=== PATIENT | female | born 1945 | race Caucasian/White ===

== ENCOUNTER 2021-10-07 02:09 | Emergency (ER) | payer MEDICARE, MEDICAID ==
[~2021-10-07] VITALS: Ht 157.5 cm; Wt 72.7 kg
[~2021-10-07 02:09] MED LIST: ATOR10TA70 PO; DIPH-423 PO; LISI40TA13 PO; METF-900 PO; NAPR-762 PO; PRED50TA PO; RANI-648 PO; SPIIN INH; TRAZ50TA54 PO
[2021-10-07] MEDS ORDERED: dexamethasone sod phosphate 10mg/ml inj IV STA (02:32)
[2021-10-07] MEDS ORDERED: normal saline 1000ML IV soln IVB STA (02:33)
[2021-10-07] MEDS ORDERED: famotidine/PF 10 mg/ml inj IV ONE (02:35)
[2021-10-07 03:04] LABS: BASOPHILS # (AUTO) 0.1 X10'3 (0-0.2); BASOPHILS % (AUTO) 1.3 % (0-1); EOSINOPHILS # (AUTO) 0.5 X10'3 (0-0.9); EOSINOPHILS % (AUTO) 5.9 % (0-6); HEMATOCRIT 34.5 % (35.0-45.0); HEMOGLOBIN 11.8 g/dl (12.0-16.0); LYMPHOCYTES % (AUTO) 22.4 % (21-51); MEAN CORPUSCULAR HEMOGLOBIN 30.6 PG (27.0-31.0); MEAN CORPUSCULAR HGB CONC 34.3 g/dL (33.0-36.5); MEAN CORPUSCULAR VOLUME 89.4 FL (78-98); MEAN PLATELET VOLUME 7.4 FL (7.4-10.4); MONOCYTES # (AUTO) 0.9 X10'3 (0-0.9); NEUTROPHILS # (AUTO) 5.4 X10'3 (1.8-7.7); NEUTROPHILS % (AUTO) 60.4 % (42-75); PLATELET COUNT 279 X10'3 (140-440); RED BLOOD COUNT 3.86 X10'6 (4.20-5.60); RED CELL DISTRIBUTION WIDTH 13.2 % (11.5-14.5); WHITE BLOOD COUNT 8.9 X10'3 (4.5-11.0)
[2021-10-07 03:23] LABS: ALANINE AMINOTRANSFERASE 30 U/L (12-78); ALBUMIN 3.1 G/DL (3.4-5.0); ALBUMIN/GLOBULIN RATIO 0.8 (1.1-1.5); ALKALINE PHOSPHATASE 47 IU/L (46-116); ANION GAP 4 (8-16); ASPARTATE AMINO TRANSFERASE 16 U/L (10-37); BILIRUBIN,TOTAL 0.3 MG/DL (0.1-1.0); BLOOD UREA NITROGEN 18 MG/DL (7-18); BUN/CREATININE RATIO 15.4 (6.6-38.0); C-REACTIVE PROTEIN 0.09 MG/DL (0.0-0.5); CALCIUM 9.3 MG/DL (8.5-10.1); CHLORIDE 104 MMOL/L (99-107); CREATININE 1.17 MG/DL (0.40-0.90); GLUCOSE 98 MG/DL (70-104); POTASSIUM 4.4 MMOL/L (3.5-5.1); SODIUM 137 MMOL/L (135-145); TOTAL CARBON DIOXIDE 28.7 MMOL/L (24-32); TOTAL PROTEIN 6.8 G/DL (6.4-8.2); eGFR 45 ML/MIN
[2021-10-07 05:44] VITALS: BP 127/66
== END 2021-10-07 05:00 | disposition home or self-care (01) ==
LOC: ER 02:10
DX: T78.3XXA Angioneurotic edema, initial encounter (principal); R13.10 Dysphagia, unspecified; R49.0 Dysphonia; I10 Essential (primary) hypertension; J45.909 Unspecified asthma, uncomplicated; K21.9 Gastro-esophageal reflux disease without esophagitis; E11.9 Type 2 diabetes mellitus without complications; F32.A Depression, unspecified; Z90.49 Acquired absence of other specified parts of digestive tract; Z88.6 Allergy status to analgesic agent; Z88.8 Allergy status to other drugs, medicaments and biological substances; Z79.899 Other long term (current) drug therapy; X58.XXXA Exposure to other specified factors, initial encounter; Y93.89 Activity, other specified; Y92.89 Other specified places as the place of occurrence of the external cause; Y99.8 Other external cause status
CPT/HCPCS: 36415; 80053; 84145; 85025; 85651; 86140; 86161; 86885; 86900; 86901; 96374; 96375; 99284; J1100; J3490; J7030

== ENCOUNTER 2023-12-12 14:31 | Emergency (ER) | payer MEDICARE, MEDICAID ==
[~2023-12-12] VITALS: Ht 157.5 cm; Wt 69.5 kg
[2023-12-12 14:46] VITALS: TEMP 98
[2023-12-12 15:22] LABS: BASOPHILS # (AUTO) 0.1 X10'3 (0-0.2); BASOPHILS % (AUTO) 1.3 % (0-1); EOSINOPHILS # (AUTO) 0.5 X10'3 (0-0.9); EOSINOPHILS % (AUTO) 5.3 % (0-6); HEMATOCRIT 28.6 % (35.0-45.0); HEMOGLOBIN 9.6 g/dl (12.0-16.0); LYMPHOCYTES # (AUTO) 1.5 X10'3 (1.1-4.8); LYMPHOCYTES % (AUTO) 17.5 % (21-51); MEAN CORPUSCULAR HEMOGLOBIN 30.1 PG (27.0-31.0); MEAN CORPUSCULAR HGB CONC 33.5 g/dL (33.0-36.5); MEAN CORPUSCULAR VOLUME 89.9 FL (78-98); MEAN PLATELET VOLUME 7.6 FL (7.4-10.4); MONOCYTES # (AUTO) 0.8 X10'3 (0-0.9); MONOCYTES % (AUTO) 9.2 % (2-12); NEUTROPHILS # (AUTO) 5.8 X10'3 (1.8-7.7); NEUTROPHILS % (AUTO) 66.7 % (42-75); PLATELET COUNT 304 X10'3 (140-440); RED BLOOD COUNT 3.18 X10'6 (4.20-5.60); RED CELL DISTRIBUTION WIDTH 13.5 % (11.5-14.5); WHITE BLOOD COUNT 8.7 X10'3 (4.5-11.0)
[2023-12-12 15:46] LABS: ALBUMIN 2.9 G/DL (3.4-5.0); ANION GAP 9 (8-16); BLOOD UREA NITROGEN 21 MG/DL (7-18); CALCIUM 9.5 MG/DL (8.5-10.1); CHLORIDE 104 MMOL/L (99-107); FREE T4 (FREE THYROXINE) 0.92 NG/DL (0.73-1.40); GLUCOSE 125 MG/DL (70-104); MAGNESIUM 1.4 MG/DL (1.5-2.4); POTASSIUM 4.2 MMOL/L (3.5-5.1); PRO BRAIN NATRIURETIC PEPTIDE 589 PG/ML (0-450); SODIUM 138 MMOL/L (135-145); THYROID STIMULATING HORMONE 1.52 ulU/ml (0.34-4.50); TOTAL CARBON DIOXIDE 25.4 MMOL/L (24-32); eCRCL 24 ML/MIN; eGFR 33 ML/MIN
[2023-12-12 16:00] LABS: APTT 26 SECONDS (22-32); PROTHROMBIN TIME 10.7 SECONDS (9.0-12.0)
[2023-12-12 17:26] VITALS: RESP 16
[2023-12-12] MEDS: hyDRALAzine 10mg tablet PO SCH (18:53)
[2023-12-12 19:09] VITALS: BP 151/52; PULSE 58; O2SAT 98
[2023-12-12] MEDS: magnesium oxide 400mg tablet PO ONE (19:10)
== END 2023-12-12 19:13 | disposition home or self-care (01) ==
LOC: ER 14:32
DX: I10 Essential (primary) hypertension (principal); J45.909 Unspecified asthma, uncomplicated; K21.9 Gastro-esophageal reflux disease without esophagitis; E11.9 Type 2 diabetes mellitus without complications; R79.1 Abnormal coagulation profile; Z88.8 Allergy status to other drugs, medicaments and biological substances; Z88.5 Allergy status to narcotic agent; Z79.899 Other long term (current) drug therapy; Z79.84 Long term (current) use of oral hypoglycemic drugs; Z90.49 Acquired absence of other specified parts of digestive tract
CPT/HCPCS: 36415; 80048; 83735; 83880; 84439; 84443; 84484; 85025; 85610; 85730; 93005; 99285

== ENCOUNTER 2024-01-22 14:15 | Day surgery (SDC) | payer MEDICARE, MEDICAID ==
[2024-01-19 13:19] LABS: BASOPHILS # (AUTO) 0.1 X10'3 (0-0.2); BASOPHILS % (AUTO) 1.1 % (0-1); EOSINOPHILS # (AUTO) 0.4 X10'3 (0-0.9); EOSINOPHILS % (AUTO) 6.6 % (0-6); HEMATOCRIT 31.6 % (35.0-45.0); HEMOGLOBIN 10.7 g/dl (12.0-16.0); LYMPHOCYTES # (AUTO) 1.3 X10'3 (1.1-4.8); LYMPHOCYTES % (AUTO) 20.6 % (21-51); MEAN CORPUSCULAR HEMOGLOBIN 30.1 PG (27.0-31.0); MEAN CORPUSCULAR HGB CONC 33.8 g/dL (33.0-36.5); MEAN CORPUSCULAR VOLUME 89.1 FL (78-98); MEAN PLATELET VOLUME 7.3 FL (7.4-10.4); MONOCYTES # (AUTO) 0.6 X10'3 (0-0.9); MONOCYTES % (AUTO) 9.2 % (2-12); NEUTROPHILS # (AUTO) 4.1 X10'3 (1.8-7.7); NEUTROPHILS % (AUTO) 62.5 % (42-75); PLATELET COUNT 310 X10'3 (140-440); RED BLOOD COUNT 3.54 X10'6 (4.20-5.60); RED CELL DISTRIBUTION WIDTH 13.8 % (11.5-14.5); WHITE BLOOD COUNT 6.5 X10'3 (4.5-11.0)
[2024-01-19 13:37] LABS: ANION GAP 9 (8-16); APTT 28 SECONDS (22-32); BLOOD UREA NITROGEN 19 MG/DL (7-18); BUN/CREATININE RATIO 15.8 (10.0-20.0); CHLORIDE 104 MMOL/L (99-107); GLUCOSE 112 MG/DL (70-104); POTASSIUM 4.1 MMOL/L (3.5-5.1); PROTHROMBIN TIME 10.5 SECONDS (9.0-12.0); SODIUM 142 MMOL/L (135-145); TOTAL CARBON DIOXIDE 29.1 MMOL/L (24-32); eGFR 43 ML/MIN
[2024-01-22] VITALS (9 sets, daily range): BP systolic 144–194; BP diastolic 50–74; PULSE 65–98; RESP 10–12; TEMP 98.1; O2SAT 98–100
[~2024-01-22] VITALS: Ht 157.5 cm; Wt 65.5 kg
[2024-01-22] MEDS ORDERED: normal saline 1,000 ML IV SCH (14:30)
[2024-01-22] MEDS ORDERED: diphenhydrAMINE 25mg capsule PO PRN (14:30)
[2024-01-22] MEDS ORDERED: LORazepam 0.5 MG tablet PO PRN (14:30)
[2024-01-22] MEDS ORDERED: FERR325T33 PO (14:47)
[2024-01-22] MEDS ORDERED: ASPI-611 PO (14:47)
[2024-01-22] MEDS ORDERED: ALEN70TA14 PO (14:47)
[2024-01-22] MEDS ORDERED: ATOR-2 PO (14:47)
[2024-01-22] MEDS ORDERED: BUPR-561 PO (14:47)
[2024-01-22] MEDS ORDERED: LOSA50TA64 PO (14:47)
[2024-01-22] MEDS ORDERED: AMLO5TAB PO (14:47)
[2024-01-22] MEDS ORDERED: GABA-530 PO (14:47)
[2024-01-22] MEDS ORDERED: CELE-148 PO (14:47)
[2024-01-22] MEDS ORDERED: CLOP75TA34 PO (14:47)
[2024-01-22] MEDS ORDERED: GARL10002 PO (14:47)
[2024-01-22] MEDS ORDERED: EZET10TA48 PO (14:47)
[2024-01-22] MEDS ORDERED: TIZA4CAP PO (14:47)
[2024-01-22] MEDS ORDERED: heparin 1,000unit/ml 10ml vial 0 ML ONE (14:57)
[2024-01-22] MEDS ORDERED: atropine 0.1mg/ml 10ml syringe ONE (14:57)
[2024-01-22] MEDS ORDERED: phenylephrine 10mg/ml inj. -priapism dosing ONE (14:57)
[2024-01-22] MEDS ORDERED: LIDOcaine 1% 30ml preserv. free vial ONE (14:57)
[2024-01-22] MEDS ORDERED: iohexol 350MG/ML 100ml bottle IV ONE (14:58)
[2024-01-22] MEDS ORDERED: DOPamine 400mg/D5W 250ml 0 ML IV ONE (14:58)
[2024-01-22 15:27] LABS: CHOL/HDL RATIO 1.9 (0.00-4.99); CHOLESTEROL 110 MG/DL (0-200); HDL CHOLESTEROL 57 MG/DL (35-60); LDL CHOLESTEROL 43 MG/DL (50-100); TRIGLYCERIDES 80 MG/DL (20-135)
[2024-01-22] MEDS ORDERED: hydrALAZINE 20mg/ml inj. IV ONE (16:31)
[2024-01-22] MEDS ORDERED: HYDROcodone/acetaminophen 10/325mg tab PO PRN (17:15)
[2024-01-22] MEDS: hydrALAZINE 20mg/ml inj. IV ONE (17:43)
[2024-01-22] MEDS: HYDROcodone/acetaminophen 5mg/325mg tablet PO PRN (17:59)
== END 2024-01-22 19:00 | disposition home or self-care (01) ==
LOC: SSTAY O 14:15
PROVIDERS: ATTEND Student in an Organized Health Care Education/Training Program
DX: I65.21 Occlusion and stenosis of right carotid artery (principal); I70.0 Atherosclerosis of aorta; I10 Essential (primary) hypertension; E11.9 Type 2 diabetes mellitus without complications; E78.00 Pure hypercholesterolemia, unspecified; J44.9 Chronic obstructive pulmonary disease, unspecified; Z79.82 Long term (current) use of aspirin; Z79.84 Long term (current) use of oral hypoglycemic drugs; Z79.891 Long term (current) use of opiate analgesic; Z79.899 Other long term (current) drug therapy; Z88.8 Allergy status to other drugs, medicaments and biological substances
CPT/HCPCS: 36222; 36415; 80048; 80061; 82948; 85025; 85610; 85730; 93005; A6258; C1760; C1894; J0360; J1644; J2001; J2371; J7030; Q9967; Z7610; 36223; J0461; J1265; J2370; J3490

== ENCOUNTER 2024-07-31 10:51 | Inpatient (IN) | payer MEDICARE, MEDICAID ==
[~2024-07-31] VITALS: Ht 157.5 cm; Wt 68.3 kg
[~2024-07-31 10:51] MED LIST changes: +ALEN70TA14 PO; +AMLO5TAB PO; +ASPI-611 PO; +ATOR-2 PO; -ATOR10TA70 PO; +BUPR-561 PO; +CELE-148 PO; +CLOP75TA34 PO; -DIPH-423 PO; +EZET10TA48 PO; +FERR325T33 PO; +GABA-530 PO; +GARL10002 PO; -LISI40TA13 PO; +LOSA50TA64 PO; -NAPR-762 PO; -PRED50TA PO; -RANI-648 PO; -SPIIN INH; +TIZA4CAP PO
[2024-07-31 11:15] LABS: BASOPHILS # (AUTO) 0.1 X10'3 (0-0.2); BASOPHILS % (AUTO) 1.3 % (0-1); EOSINOPHILS # (AUTO) 0.3 X10'3 (0-0.9); EOSINOPHILS % (AUTO) 3.3 % (0-6); HEMATOCRIT 31.3 % (35.0-45.0); HEMOGLOBIN 10.6 g/dl (12.0-16.0); LYMPHOCYTES # (AUTO) 1.2 X10'3 (1.1-4.8); LYMPHOCYTES % (AUTO) 14.4 % (21-51); MEAN CORPUSCULAR HEMOGLOBIN 30.1 PG (27.0-31.0); MEAN CORPUSCULAR HGB CONC 33.7 g/dL (33.0-36.5); MEAN CORPUSCULAR VOLUME 89.4 FL (78-98); MEAN PLATELET VOLUME 7.4 FL (7.4-10.4); MONOCYTES # (AUTO) 0.6 X10'3 (0-0.9); MONOCYTES % (AUTO) 7.3 % (2-12); NEUTROPHILS # (AUTO) 6.1 X10'3 (1.8-7.7); NEUTROPHILS % (AUTO) 73.7 % (42-75); PLATELET COUNT 317 X10'3 (140-440); RED BLOOD COUNT 3.51 X10'6 (4.20-5.60); RED CELL DISTRIBUTION WIDTH 14.1 % (11.5-14.5); WHITE BLOOD COUNT 8.3 X10'3 (4.5-11.0)
[2024-07-31 11:29] LABS: ALANINE AMINOTRANSFERASE 19 U/L (12-78); ALBUMIN 3.1 G/DL (3.4-5.0); ALBUMIN/GLOBULIN RATIO 0.8 (1.1-1.5); ALKALINE PHOSPHATASE 58 IU/L (46-116); ANION GAP 11 (8-16); ASPARTATE AMINO TRANSFERASE 19 U/L (10-37); BILIRUBIN,TOTAL 0.5 MG/DL (0.1-1.0); BLOOD UREA NITROGEN 18 MG/DL (7-18); BUN/CREATININE RATIO 13.7 (10.0-20.0); CALCIUM 9.5 MG/DL (8.5-10.1); CHLORIDE 104 MMOL/L (99-107); CREATININE 1.31 MG/DL (0.40-0.90); GLUCOSE 109 MG/DL (70-104); POTASSIUM 3.7 MMOL/L (3.5-5.1); SODIUM 141 MMOL/L (135-145); TOTAL PROTEIN 7.1 G/DL (6.4-8.2); eCRCL 28 ML/MIN; eGFR 39 ML/MIN
[2024-07-31 11:38] LABS: PRO BRAIN NATRIURETIC PEPTIDE 3355 PG/ML (0-450)
[2024-07-31] MEDS: albuterol 2.5 MG/3 ML nebule NEB ONE (13:06)
[2024-07-31 13:21] VITALS: PULSE 77; PULSE 88; RESP 20; RESP 24; O2SAT 89; O2SAT 98
[2024-07-31] MEDS: methylPREDNISolone sod succ 125mg/2ml vial IV ONE (13:33)
[2024-07-31] MEDS ORDERED: magnesium sulf-water 2g/50mL 50 ML IV PRN (17:00)
[2024-07-31] MEDS ORDERED: albuterol 2.5 MG/3 ML nebule NEB PRN (17:00)
[2024-07-31] MEDS ORDERED: acetaminophen 325mg tablet PO PRN ×2 (17:00)
[2024-07-31] MEDS ORDERED: morphine 2 MG/ML inj. syringe IV PRN (17:00)
[2024-07-31] MEDS ORDERED: ondansetron/PF 4mg/2ml inj IV PRN (17:00)
[2024-07-31] MEDS ORDERED: magnesium Cl slow-release 64mg tablet PO PRN (17:00)
[2024-07-31] MEDS ORDERED: potassium Cl 20 mEq SR tablet PO PRN ×2 (17:00)
[2024-07-31] MEDS ORDERED: mag hydrox/Alum hydrox/simeth 30ml oral suspension PO PRN (17:00)
[2024-07-31] MEDS ORDERED: magnesium sulf-water 4G/100mL 100 ML IV PRN (17:00)
[2024-07-31] MEDS ORDERED: magnesium hydroxide 30ml (MOM) UD suspension PO PRN (17:00)
[2024-07-31] MEDS ORDERED: potassium Cl 40MEQ/1/2NS 520ml 520 ML IV PRN (17:00)
[2024-07-31] MEDS: furosemide 10 MG/1 ML 10ml inj IV STA (17:20)
[2024-07-31 17:46] LABS: MAGNESIUM 1.6 MG/DL (1.5-2.4); PHOSPHORUS 4.3 MG/DL (2.3-4.5)
[2024-07-31 17:46] LABS: INR 1.1 INR; PROTHROMBIN TIME 11.2 SECONDS (9.0-12.0)
[2024-07-31 17:52] LABS: APTT 29 SECONDS (22-32)
[2024-07-31 17:53] LABS: HEMOGLOBIN A1C 5.8 % (4.5-6.2)
[2024-07-31] MEDS ORDERED: metoprolol tartrate 1mg/ml inj IV PRN (18:30)
[2024-07-31] MEDS ORDERED: aminophylline 500mg/20ml vial IV PRN (18:30)
[2024-07-31] MEDS ORDERED: regadenoson 0.4mg/5ml syringe IV PRN (18:30)
[2024-07-31] MEDS ORDERED: nitroGLYCERIN 0.4mg SUBLingual tab SL PRN (18:30)
[2024-07-31 19:01] LABS: BILIRUBIN,URINE NEGATIVE (Neg); CLARITY,URINE CLEAR (Clear); COLOR,URINE YELLOW (Yellow); GLUCOSE, URINE NEGATIVE (Neg); KETONES,URINE NEGATIVE (Neg); LEUKOCYTE ESTERASE ,URINE SMALL (Neg); NITRITES, URINE NEGATIVE (Neg); OCCULT BLOOD,URINE MODERATE (Neg); PH,URINE 5.5 (4.8-8.0); PROTEIN,URINE 100 mg/dl (Neg); UROBILINOGEN,URINE 0.2 E.U/dL (0.2-1.0)
[2024-07-31 19:02] LABS: UA COLLECTION TYPE CLN CATCH MIDSTREAM
[2024-07-31 19:08] LABS: BACTERIA,URINE 1+ /HPF (Neg); SQUAMOUS EPITHELIAL CELL,UR MODERATE /LPF (FEW)
[2024-07-31 19:22] LABS: TOTAL PROTEIN,URINE RANDOM 77.7 MG/DL
[2024-07-31 19:32] LABS: D-DIMER 1.85 MG/L FEU (0-0.50)
[2024-07-31] MEDS: K and/or MAG REPLACEMENT MC SCH (19:57)
[2024-07-31] MEDS: docusate sod 100mg capsule PO SCH (20:00)
[2024-07-31] MEDS: ipratropium/albuterol 3ml nebule NEB SCH (20:45)
[2024-07-31 20:48] VITALS: PULSE 87; RESP 18; O2SAT 97
[2024-07-31 20:53] VITALS: PULSE 87; RESP 18
[2024-07-31] MEDS: traZODone 50mg tablet PO SCH (21:00)
[2024-07-31] MEDS: furosemide 40mg/4ml inj IV SCH (21:11)
[2024-08-01] VITALS (21 sets, daily range): BP systolic 92–123; BP diastolic 47–68; PULSE 63–100; RESP 13–29; TEMP 96.9–98.2; O2SAT 91–99
[2024-08-01 03:03] LABS: BASOPHILS % (AUTO) 0.4 % (0-1); EOSINOPHILS % (AUTO) 0 % (0-6); HEMATOCRIT 31.9 % (35.0-45.0); HEMOGLOBIN 10.7 g/dl (12.0-16.0); LYMPHOCYTES # (AUTO) 0.6 X10'3 (1.1-4.8); LYMPHOCYTES % (AUTO) 6.4 % (21-51); MEAN CORPUSCULAR HEMOGLOBIN 29.6 PG (27.0-31.0); MEAN CORPUSCULAR HGB CONC 33.6 g/dL (33.0-36.5); MEAN CORPUSCULAR VOLUME 88.2 FL (78-98); MEAN PLATELET VOLUME 7.8 FL (7.4-10.4); MONOCYTES # (AUTO) 0.2 X10'3 (0-0.9); MONOCYTES % (AUTO) 2.5 % (2-12); NEUTROPHILS % (AUTO) 90.7 % (42-75); PLATELET COUNT 333 X10'3 (140-440); RED BLOOD COUNT 3.62 X10'6 (4.20-5.60); RED CELL DISTRIBUTION WIDTH 13.9 % (11.5-14.5); WHITE BLOOD COUNT 8.8 X10'3 (4.5-11.0)
[2024-08-01 03:24] LABS: ANION GAP 10 (8-16); BLOOD UREA NITROGEN 27 MG/DL (7-18); BUN/CREATININE RATIO 17.8 (10.0-20.0); CALCIUM 9.7 MG/DL (8.5-10.1); CHLORIDE 103 MMOL/L (99-107); CHOL/HDL RATIO 1.9 (0.00-4.99); CHOLESTEROL 138 MG/DL (0-200); CREATININE 1.52 MG/DL (0.40-0.90); GLUCOSE 175 MG/DL (70-104); HDL CHOLESTEROL 71 MG/DL (35-60); LDL CHOLESTEROL 60 MG/DL (50-100); MAGNESIUM 1.5 MG/DL (1.5-2.4); POTASSIUM 3.7 MMOL/L (3.5-5.1); SODIUM 141 MMOL/L (135-145); TOTAL CARBON DIOXIDE 28.1 MMOL/L (24-32); TRIGLYCERIDES 46 MG/DL (20-135); eCRCL 24 ML/MIN; eGFR 33 ML/MIN
[2024-08-01 07:33] LABS: LACTATE DEHYDROGENASE 264 U/L (81-234)
[2024-08-01] MEDS: CefTRIAXone/D5W-Rocephin 1gm 50 ML IV SCH (07:50)
[2024-08-01] MEDS: atorvastatin 20mg tablet PO SCH (07:50)
[2024-08-01] MEDS: aspirin 81mg, enteric-coated 1 TAB TABLET.DR PO SCH (07:50)
[2024-08-01] MEDS: ferrous sulfate 325mg tablet PO SCH (07:50)
[2024-08-01] MEDS: amLODIPine 5mg tablet PO SCH (07:54)
[2024-08-01] MEDS: losartan 50mg tablet PO SCH (07:54)
[2024-08-01] MEDS: METFORMIN HCL 500 MG PO SCH (08:00)
[2024-08-01] MEDS: budesonide 0.5mg/2ml UD nebule IH SCH (08:05)
[2024-08-01] MEDS: enoxaparin 40mg/0.4ml syringe SUBCUT SCH (08:14)
[2024-08-01 10:57] LABS: BFSOURCE PLEURAL FLD; PLEURAL FLUID PH 7.489 (7.63-7.65)
[2024-08-01 11:08] LABS: GLUCOSE,BODY FLUID 141 MG/DL; LDH,BODY FLUID 79 U/L
[2024-08-01 11:44] LABS: BFAPPEAR CLEAR; BFSOURCE PLEURAL FLD; TOTAL PROTEIN,BODY FLUID < 2.0 G/DL
[2024-08-01 11:45] LABS: BF RBC COUNT 333 /CU MM; BF WBC COUNT 178 /CU MM (0-1000); BFCOLOR YELLOW; BFVOLUME 60 ML; EOSINOPHILS,BODY FLUID 1 %; LYMPHOCYTES,BODY FLUID 42 %; MONOCYTES,BODY FLUID 37 %; NEUTROPHILS,BODY FLUID 20 %
[2024-08-01 11:46] LABS: BF MESOTHELIAL CELLS MANY
[2024-08-01] MEDS: metoprolol succinate 25mg (24-HOUR) SR. Tablet PO SCH (12:50)
[2024-08-01] MEDS: tizanidine 4mg tablet PO PRN (23:38)
[2024-08-02] VITALS (14 sets, daily range): BP systolic 92–148; BP diastolic 43–77; PULSE 66–84; RESP 16–22; TEMP 97.2–97.7; O2SAT 92–99
[2024-08-02] MEDS: gabapentin 100mg capsule PO ONE (02:21)
[2024-08-02 06:02] LABS: BASOPHILS # (AUTO) 0.1 X10'3 (0-0.2); BASOPHILS % (AUTO) 1.2 % (0-1); EOSINOPHILS # (AUTO) 0.2 X10'3 (0-0.9); EOSINOPHILS % (AUTO) 2.4 % (0-6); HEMATOCRIT 27.3 % (35.0-45.0); LYMPHOCYTES % (AUTO) 22.6 % (21-51); MEAN CORPUSCULAR HEMOGLOBIN 29.4 PG (27.0-31.0); MEAN CORPUSCULAR HGB CONC 33.1 g/dL (33.0-36.5); MEAN CORPUSCULAR VOLUME 88.9 FL (78-98); MONOCYTES # (AUTO) 0.9 X10'3 (0-0.9); MONOCYTES % (AUTO) 9.8 % (2-12); NEUTROPHILS # (AUTO) 5.7 X10'3 (1.8-7.7); PLATELET COUNT 283 X10'3 (140-440); RED BLOOD COUNT 3.07 X10'6 (4.20-5.60); RED CELL DISTRIBUTION WIDTH 14.4 % (11.5-14.5); WHITE BLOOD COUNT 8.9 X10'3 (4.5-11.0)
[2024-08-02 06:24] LABS: ALBUMIN 2.6 G/DL (3.4-5.0); ANION GAP 7 (8-16); BLOOD UREA NITROGEN 29 MG/DL (7-18); BUN/CREATININE RATIO 15.9 (10.0-20.0); CALCIUM 8.5 MG/DL (8.5-10.1); CHLORIDE 101 MMOL/L (99-107); CREATININE 1.82 MG/DL (0.40-0.90); GLUCOSE 111 MG/DL (70-104); MAGNESIUM 1.6 MG/DL (1.5-2.4); POTASSIUM 3.6 MMOL/L (3.5-5.1); SODIUM 139 MMOL/L (135-145); TOTAL CARBON DIOXIDE 31.5 MMOL/L (24-32); eCRCL 20 ML/MIN; eGFR 27 ML/MIN
[2024-08-02] MEDS ORDERED: furosemide 40mg/4ml inj IV SCH (08:00)
[2024-08-02] MEDS: normal saline 500ml IV soln 500 ML IV SCH (08:10)
[2024-08-02] MEDS: gabapentin 100mg capsule PO SCH (08:45)
[2024-08-02 14:03] LABS: ANION GAP 8 (8-16); BLOOD UREA NITROGEN 26 MG/DL (7-18); BUN/CREATININE RATIO 17.3 (10.0-20.0); CALCIUM 9.6 MG/DL (8.5-10.1); CHLORIDE 102 MMOL/L (99-107); GLUCOSE 89 MG/DL (70-104); SODIUM 140 MMOL/L (135-145); TOTAL CARBON DIOXIDE 30.4 MMOL/L (24-32); eCRCL 24 ML/MIN; eGFR 33 ML/MIN
[2024-08-02 14:06] LABS: POTASSIUM 4.5 MMOL/L (3.5-5.1)
[2024-08-02] MEDS: BUPROPION HCL 150MG XL 24 HR 150 MG TAB PO SCH (20:30)
[2024-08-03] VITALS (7 sets, daily range): BP systolic 101–113; BP diastolic 54–62; PULSE 60–80; RESP 15–20; TEMP 97.6–98.4; O2SAT 91–93
[2024-08-03 06:00] LABS: BASOPHILS # (AUTO) 0.1 X10'3 (0-0.2); BASOPHILS % (AUTO) 1.3 % (0-1); EOSINOPHILS # (AUTO) 0.5 X10'3 (0-0.9); EOSINOPHILS % (AUTO) 6.4 % (0-6); HEMOGLOBIN 10.4 g/dl (12.0-16.0); LYMPHOCYTES # (AUTO) 1.5 X10'3 (1.1-4.8); LYMPHOCYTES % (AUTO) 18.6 % (21-51); MEAN CORPUSCULAR HEMOGLOBIN 30.5 PG (27.0-31.0); MEAN CORPUSCULAR HGB CONC 34.5 g/dL (33.0-36.5); MEAN CORPUSCULAR VOLUME 88.5 FL (78-98); MEAN PLATELET VOLUME 7.9 FL (7.4-10.4); MONOCYTES # (AUTO) 0.9 X10'3 (0-0.9); MONOCYTES % (AUTO) 11.1 % (2-12); NEUTROPHILS # (AUTO) 4.9 X10'3 (1.8-7.7); NEUTROPHILS % (AUTO) 62.6 % (42-75); PLATELET COUNT 283 X10'3 (140-440); RED BLOOD COUNT 3.39 X10'6 (4.20-5.60); RED CELL DISTRIBUTION WIDTH 14.3 % (11.5-14.5); WHITE BLOOD COUNT 7.8 X10'3 (4.5-11.0)
[2024-08-03 06:25] LABS: ALBUMIN 2.6 G/DL (3.4-5.0); ANION GAP 7 (8-16); BLOOD UREA NITROGEN 29 MG/DL (7-18); BUN/CREATININE RATIO 18.4 (10.0-20.0); CALCIUM 9.7 MG/DL (8.5-10.1); CHLORIDE 105 MMOL/L (99-107); CREATININE 1.58 MG/DL (0.40-0.90); GLUCOSE 110 MG/DL (70-104); MAGNESIUM 1.7 MG/DL (1.5-2.4); SODIUM 142 MMOL/L (135-145); TOTAL CARBON DIOXIDE 29.7 MMOL/L (24-32); eCRCL 23 ML/MIN; eGFR 32 ML/MIN
[2024-08-03] MEDS: ezetimibe 10mg tablet PO SCH (07:34)
[2024-08-03] MEDS: enoxaparin 30mg/0.3ml syringe SUBCUT SCH (07:35)
[2024-08-03] MEDS ORDERED: CEFD300C3 PO (09:19)
[2024-08-03] MEDS ORDERED: METO-395 PO (09:19)
[2024-08-03] MEDS ORDERED: IPRA3AMP31 NEB (12:56)
[2024-08-03] MEDS ORDERED: ALBU2.5V7 NEB (12:56)
== END 2024-08-03 13:50 | disposition home or self-care (01) | DRG 682 ==
LOC: ER 10:52 → MERGE 10:52 → ED HOLD 17:06 → PCU 3S 08-01 05:20
PROVIDERS: ADMIT Family Medicine; ATTEND Family Medicine
PROC: 0W9B3ZZ Drainage of Left Pleural Cavity, Percutaneous Approach (ICD-10-PCS; principal; 2024-08-01)
PROC: 0W993ZZ Drainage of Right Pleural Cavity, Percutaneous Approach (ICD-10-PCS; 2024-08-01)
PROC: CB121ZZ Planar Nuclear Medicine Imaging of Lungs and Bronchi using Technetium 99m (Tc-99m) (ICD-10-PCS; 2024-08-01)
DX: N17.9 Acute kidney failure, unspecified (principal); I50.33 Acute on chronic diastolic (congestive) heart failure; J96.01 Acute respiratory failure with hypoxia; I13.0 Hypertensive heart and chronic kidney disease with heart failure and stage 1 through stage 4 chronic kidney disease, or unspecified chronic kidney disease; I16.1 Hypertensive emergency; J91.8 Pleural effusion in other conditions classified elsewhere; N39.0 Urinary tract infection, site not specified; I27.81 Cor pulmonale (chronic); E78.00 Pure hypercholesterolemia, unspecified; Z20.822 Contact with and (suspected) exposure to COVID-19; E11.22 Type 2 diabetes mellitus with diabetic chronic kidney disease; N18.30 Chronic kidney disease, stage 3 unspecified; Z79.899 Other long term (current) drug therapy; Z88.8 Allergy status to other drugs, medicaments and biological substances; Z79.01 Long term (current) use of anticoagulants; Z79.82 Long term (current) use of aspirin; Z79.84 Long term (current) use of oral hypoglycemic drugs
CPT/HCPCS: 32555; 36415; 71046; 71250; 78582; 80048; 80053; 80061; 81001; 82570; 82945; 83036; 83615; 83735; 83880; 83986; 84100; 84156; 84157; 84300; 84484; 85025; 85379; 85610; 85730; 87070; 87088; 87502; 87503; 87811; 89051; 93005; 93306; 94640; 94760; 96374; 96375; 97161; 97530; 99285; A4615; A9539; A9540; C1729; G0378; J0696; J1650; J1940; J2919; J7030; J7040

== ENCOUNTER 2024-11-24 15:45 | Emergency (ER) | payer MEDICARE, MEDICAID ==
[~2024-11-24] VITALS: Ht 160 cm; Wt 65.9 kg
[~2024-11-24 15:45] MED LIST changes: +ALBU18HF2 INH; -ALEN70TA14 PO; +AMLO-382 PO; -AMLO5TAB PO; -BUPR-561 PO; +CALC500T63 PO; -CELE-148 PO; +CHLO25TA11 PO; +CHOL100024 PO; -CLOP75TA34 PO; +CYCL1DRO EACHEYE; -GARL10002 PO; -LOSA50TA64 PO; -METF-900 PO; +METO-539 PO; +OMEP20CA16 PO; +TIOT4MIS2 INH
[2024-11-24 16:00] VITALS: BP 147/84; PULSE 79; RESP 18; TEMP 97.5; O2SAT 99
--- NOTE | 2024-11-24 16:25 | Physician Documentation ---
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 Patient reports she feels otherwise well and reports no fevers. Tetanus witin 5 years: Yes Medication Reconciliation Allergies: Coded Allergies: No Known Allergies (Unverified , 10/09/24) Scheduled Amlodipine/Valsartan (Amlodipine-Valsartan 10-320 mg), 1 TAB PO DAILY, (Reported) Aspirin (Aspir 81), 1 TAB PO DAILY, (Reported) Atorvastatin Calcium (Atorvastatin Calcium), 1 TAB PO HS, (Reported) Calcium Carbonate (Calcium), 1 TAB PO DAILY, (Reported) Chlorthalidone (Chlorthalidone), 1 TAB PO DAILY, (Reported) Cholecalciferol (Vitamin D3) (Vitamin D3), 1 CAP PO DAILY, (Reported) Cyclosporine (Restasis), 1 DROP EACHEYE HS, (Reported) Ezetimibe (Ezetimibe), 1 TAB PO DAILY, (Reported) Ferrous Sulfate (Ferrous Sulfate), 1 TAB PO DAILY, (Reported) Gabapentin (Gabapentin), 200 MG PO BID, (Reported) Metoprolol Succinate* (Toprol Xl*), 12.5 MG PO DAILY, (Reported) Omeprazole (Omeprazole), 1 CAP PO DAILY, (Reported) Tizanidine Hcl (Zanaflex), 4 MG PO QID PRN MUSCLE SPASM, (Reported) Trazodone Hcl* (Desyrel*), 50 MG PO HS, (Reported) Scheduled PRN Albuterol Sulfate (Ventolin Hfa), 2 PUFFS INH DAILY PRN for SOB or wheezing, (Reported) Tiotropium [place] (Spiriva Respimat), 2 PUFFS INH DAILY PRN for SOB or wheezing, (Reported) Past Medical History Past Medical History: Hypertension, Asthma, GERD, Diabetes, Depression Past Surgical History: cholecystectomy Patient History: PSYS Alcohol Use: Rarely Drug Use: none Lives with: Family Lives In: Home Review of Systems ROS Blisters to feet as stated above in the HPI, otherwise all systems are reviewed and negative. Physical Exam Vital Signs: Temperature: 97.5, Source: Temporal, Heart Rate: 79, Respiratory Rate: 18, BP: 147/84, Pulse Oximetry: 99, Weight: 65.910 Oxygen Flow Rate: 0 Physical Exam VITALS: Reviewed and as above. GENERAL: Alert, nontoxic appearing, no apparent distress. RESPIRATORY: No increased work of breathing, no respiratory distress, speaking in full clear sentences SKIN: Oozing Bleeding from broken blister to right dorsal aspect of 5th toe, oozing bleeding from broken blister to lateral aspect of right 4th toe, broken blister without bleeding to the medial aspect of right foot, intact blister to the medial aspect of left foot, nonbleeding broken blister to dorsal aspect of left 5th toe Progress Results/Orders Results/Orders Orders - GALL[facility] STACK Wound Care Orders (11/24/24 17:12) Vital Signs 11/24/24 16:00 Temp 97.5 Pulse 79 Resp 18 B/P (MAP) 147/84 Pulse Ox 99 O2 Flow Rate 0 Medical Decision Making Findings MSE performed in triage and patient returned to ED lobby by nursing staff to await available ED room This 79-year-old female presented with ruptured blisters to bilateral feet with bleeding from several of the blisters, blisters were cleaned and dressed by nursing staff and there was no evidence of infection. I suspect blisters are related to patient's recent diagnosis of [id number] disease and it was reassuring blisters are limited to the lateral aspects of the feet and toes. Patient is otherwise well-appearing and appropriate for outpatient follow up. Foot Diff Dx:Considerations: Include: Cellulitis, Gout, Hematoma, Ingrown toenail, Laceration, Paronychia, Sprain, Septic, Ulcer Departure Disposition: 01 HOME / SELF CARE / HOMELESS Impression: Primary Impression: Blister of fifth toe of left foot Qualified Codes: S90.425A - Blister (nonthermal), left lesser toe(s), initial encounter Additional Impressions: Blister of fifth toe of right foot Qualified Codes: S90.424A - Blister (nonthermal), right lesser toe(s), initial encounter Blister (nonthermal), right foot, initial encounter Blister (nonthermal), left foot, initial encounter Condition: Improved Discharge Instructions: Blisters, Adult Additional Instructions: Keep the areas clean dry and covered. Do not attempt to pop the blisters to allow them to drain on their own. Please return to your choice of medical provider in 2-3 days for a wound recheck. Please follow up with your primary care provider in the next few days. Please return to the emergency department for any new or worsening concerning symptoms including but not limited to worsening pain or swelling to your feet. Referrals: NO PRIMARY CARE PROVIDER (PCP) Education Educated: Patient Educated regarding: diagnosis, treatment, prognosis, need for follow up Signature Scribe Signature: No scribe Attestation: The note accurately reflects work and decisions made by me.NICOLE Brooks 11/25/24 02:38 GALLO STACK Nov 24, 2024 16:25
== END 2024-11-24 17:46 | disposition home or self-care (01) ==
LOC: ER 15:46
DX: S90.821A Blister (nonthermal), right foot, initial encounter (principal); S90.822A Blister (nonthermal), left foot, initial encounter; S90.425A Blister (nonthermal), left lesser toe(s), initial encounter; J45.909 Unspecified asthma, uncomplicated; I10 Essential (primary) hypertension; K21.9 Gastro-esophageal reflux disease without esophagitis; F32.A Depression, unspecified; E11.9 Type 2 diabetes mellitus without complications; Z90.49 Acquired absence of other specified parts of digestive tract; Z79.899 Other long term (current) drug therapy; X58.XXXA Exposure to other specified factors, initial encounter; Y93.89 Activity, other specified; Y92.89 Other specified places as the place of occurrence of the external cause; Y99.8 Other external cause status
CPT/HCPCS: 16000; 99282